=== PATIENT | female | born 1960 | race Caucasian/White ===

== ENCOUNTER → 2024-10-04 | Outpatient (CLI) | payer BC ==
--- NOTE | 2024-10-04 12:30 | CA ---
Stress Echo Report Janice Pascal Age: 64 Gender: F : 1960 Exam Date: 10/04/2024 10:34 Exam Location: [facility] Ht (in): 64 Wt (lb): 156 Ordering Physician: Ricci Holloway MD Referring Physician: Ricci Holloway MD Post Secondary Professional: [employer] Techn[employer] Procedure CPT: Indication: R07.9 CHEST PAIN ICD-9 Codes: Rhythm: Patient History: Chest pain, shortness of breath and palpitations. Cardiac Medications: SEE LIST,,,,, Medications in past 24 hours: Contrast: Stress Results Protocol: Vadim Total dose(mL): Exercise Duration (min:sec): 8:[address] Depression (mm): Angina Score: [place] Score: METS: 10.3 Resting HR: 62 Resting BP: 133 / 81 Peak HR: 152 Peak BP: 202 / 92 Max Predicted HR: 156 97 % Max Predicted HR Target HR: 133 Double Product: 26084 Stress Summary: BP Response: Reason for Termination: MAX EXERTION/TARGET HR Cardiac Symptoms: THROAT TIGHTNESS ECG Analysis Resting ECG: Normal sinus rhythm Stress ECG: No abnormal ST/T wave changes with exercise Arrhythmia: Occasional PVCs Echo Analysis Resting Echo: Normal global and regional wall motion at rest. Peak Echo Analysis: Normal global and regional wall motion with stress. MEASUREMENTS (Male/Female) Normal Values CONCLUSIONS Good exercise tolerance, patient achieved 10.3 METS Non ischemic ECG and echocardiographic response to exercise Normal clinical response to exercise Mildly hypertensive response to exercise Dr Alli Morales (Electronically Signed) Final Date: 04 October 2024 12:29
== END | disposition home or self-care (01) ==
LOC: RADNMMAIN 09:42
PROVIDERS: ATTEND Internal Medicine Cardiovascular Disease
DX: R07.9 Chest pain, unspecified (principal); I10 Essential (primary) hypertension; R00.2 Palpitations
CPT/HCPCS: 93351